=== PATIENT | female | born 1955 | race African-American/Black ===

== ENCOUNTER 2016-05-20 22:43 | Emergency (ER) | payer OTHER ==
[~2016-05-20] VITALS: Ht 167.6 cm; Wt 68.5 kg
[~2016-05-20 22:43] MED LIST: NAPROSYN500 M1 ORAL; TRAMADOL HCL50 MG ORAL
[2016-05-21] MEDS ORDERED: CYCLOBENZAPRINE10 MG ORAL (01:33)
[2016-05-21] MEDS ORDERED: NAPROSYN500 M1 ORAL (01:34)
[2016-05-21 01:40] VITALS: BP 147/103
--- NOTE | 2016-05-21 12:00 | Diagnostic Imaging Report ---
Indication: PAIN Technique: 3 views of the lumbar spine Comparison: : 09/05/15 Findings:There is slight anterior offset of L4 on L5, also previously demonstrated. There is slight degenerative narrowing of the L4-5 disc, likewise previously demonstrated. Remainder of the bony alignment is normal. No acute fractures. No dislocations. Vertebral body heights are preserved. The remaining disc spaces are preserved. There are degenerative changes of the hip joints bilaterally, right greater than left Impression:No acute bony trauma Degenerative changes as described This agrees with the preliminary interpretation provided by the emergency room physician
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
== END 2016-05-21 01:40 | disposition home or self-care (01) ==
LOC: EMR 23:55
DX: S39.012A Strain of muscle, fascia and tendon of lower back, initial encounter (principal); V43.62XA Car passenger injured in collision with other type car in traffic accident, initial encounter; Y93.9 Activity, unspecified; Y92.410 Unspecified street and highway as the place of occurrence of the external cause; J44.9 Chronic obstructive pulmonary disease, unspecified; I10 Essential (primary) hypertension; M54.2 Cervicalgia
CPT/HCPCS: 72020; 72040; 99284

== ENCOUNTER 2016-07-22 14:36 | Emergency (ER) | payer OTHER ==
[~2016-07-22] VITALS: Ht 167.6 cm; Wt 68.5 kg
[~2016-07-22 14:36] MED LIST changes: +CYCLOBENZAPRINE10 MG ORAL
[2016-07-22] MEDS: Norco 5mg/325mg tab PO ONE ×2 (15:03→15:06)
[2016-07-22] MEDS ORDERED: Ketorolac 30mg Inj IM ONE (15:15)
[2016-07-22] MEDS ORDERED: Morphine Sulfate 4mg/ml Inj IM ONE (15:15)
--- NOTE | 2016-07-22 16:12 | Diagnostic Imaging Report ---
Indication: Pain 3 views of the left knee were obtained. Findings: No acute fracture, malalignment, or joint effusion are identified. Joint space is relatively well-maintained. Bone mineralization is within normal limits for age. Impression: Negative exam
[2016-07-22] MEDS ORDERED: IBUPROFEN600 MG ORAL (16:15)
[2016-07-22] MEDS ORDERED: TRAMADOL HCL50 MG ORAL (16:15)
[2016-07-22 16:38] VITALS: BP 120/80
--- NOTE | 2016-07-22 20:15 | Emergency Room Report ---
History of Present Illness General Chief Complaint: Lower Extremity Injury Source: Patient, Medical Record, EMS Present Illness HPI 61-year-old female presents to ED complaining of left knee pain. Patient states she's been having pain for the last 3 days. Getting progressively worse. Cannot recall any trauma to the leg. Pain is sharp, localized to the lateral side of the knee, 10 out of 10, worse with flexion and extension. No other aggravating relieving factors. Denies any other injuries. Denies any other associated symptoms Allergies: Coded Allergies: NO KNOWN ALLERGIES (Unverified Allergy, Unknown, 02/22/15) Patient History Past Medical History: HTN, COPD Past Surgical History: none Pertinent Family History: none Social History: Denies: alcohol use, drug use, smoking Last Menstrual Period: na Now: No Immunizations: UTD Reviewed Nursing Documentation: PMH: Agreed, PSxH: Agreed Nursing Documentation-PMH Past Medical History: No History, Except For Hx Hypertension: Yes Hx COPD: Yes Review of Systems All Other Systems: negative except mentioned in HPI Physical Exam Vital Signs Date Time Temp Pulse Resp B/P Pulse Ox O2 Delivery O2 Flow Rate FiO2 07/22/16 14:34 97.7 75 18 120/80 98 Room Air Sp02 EP Interpretation: reviewed, normal General Appearance: no apparent distress, alert, GCS 15, non-toxic Head: normocephalic, atraumatic Eyes: bilateral eye PERRL, bilateral eye normal inspection ENT: hearing grossly normal, normal pharynx, no angioedema, normal voice Neck: full range of motion, supple/symm/no masses Respiratory: chest non-tender, lungs clear, normal breath sounds, speaking full sentences Cardiovascular #1: regular rate, rhythm, no edema Cardiovascular #2: 2+ carotid (R), 2+ carotid (L), 2+ radial (R), 2+ radial (L) , 2+ dorsalis pedis (R), 2+ dorsalis pedis (L) Gastrointestinal: normal bowel sounds, non tender, soft, non-distended, no guarding, no rebound Rectal: deferred Genitourinary: normal inspection, no CVA tenderness Musculoskeletal: back normal, gait/station normal, normal range of motion, tender - lateral aspect L knee Neurologic: alert, oriented x3, responsive, motor strength/tone normal, sensory intact, speech normal Psychiatric: judgement/insight normal, memory normal, mood/affect normal, no suicidal/homicidal ideation Reflexes: 3+ bicep (R), 3+ bicep (L), 3+ tricep (R), 3+ tricep (L), 3+ knee (R) , 3+ knee (L) Skin: normal color, no rash, warm/dry, well hydrated Lymphatic: no adenopathy Procedures Splinting Splinting : Consent: Verbal Pre-Made Type: knee immobilizer Pre-Proc Neuro Vasc Exam: normal Post-Proc Neuro Vasc Exam: normal Patient Tolerated: Well Complications: None Medical Decision Making Diagnostic Impression: Primary Impression: Knee injury Qualified Codes: S89.92XA - Unspecified injury of left lower leg, initial encounter ER Course Hospital Course 61-year-old F presents to ED complaining of L knee pain. Differential diagnoses include: Fracture, dislocation, sprain, contusion Clinical course Patient placed on stretcher. After initial history and physical, I ordered pain medications and Xrays of L knee Xrays read shows no acute fracture/dislocation. placed in knee immoblizer, given crutches Diagnosis - knee injury Stable and discharged to home with prescription for motrin, tramadol. apply ice , keep elevated. weight bear as tolerated. Followup with PMD. Return to ED if symptoms recur or worsen Other X-Ray Diagnostic Results Other X-Ray Diagnostic Results : X-Ray Ordered: L knee EP Interpretation: No Findings: no fractures, no dislocation, no soft tissue swelling Number of Views: 3 Last Vital Signs Date Time Temp Pulse Resp B/P Pulse Ox O2 Delivery O2 Flow Rate FiO2 07/22/16 16:38 97.7 18 120/80 98 Room Air 07/22/16 14:34 75 Status: improved Disposition: HOME, SELF-CARE Condition: Stable Scripts Tramadol Hcl* (ULTRAM*) 50 Mg Tablet 50 MG ORAL Q6H Y for For Pain, #30 TAB 0 Refills Prov: GEN DAILY M.D. 07/22/16 Ibuprofen* (MOTRIN*) 600 Mg Tablet 600 MG ORAL Q8H Y for For Pain, #30 TAB 0 Refills Prov: GEN DAILY M.D. 07/22/16 Patient Instructions: Knee Pain, [id number] GEN DAILY M.D. Jul 22, 2016 20:15
== END 2016-07-22 16:39 | disposition home or self-care (01) ==
LOC: EDBD 14:36 → EMR 15:16
DX: S89.92XA Unspecified injury of left lower leg, initial encounter (principal); I10 Essential (primary) hypertension; J44.9 Chronic obstructive pulmonary disease, unspecified; X58.XXXA Exposure to other specified factors, initial encounter; Y92.9 Unspecified place or not applicable
CPT/HCPCS: 29530; 73562; 96372; 99284; J1885